=== PATIENT | female | born 1995 | race African-American/Black ===

== ENCOUNTER 2017-04-19 18:03 | Emergency (ER) | payer OTHER, SELFPAY ==
[2017-04-19 18:37] LABS: #Basophils 0.1 thou/uL (0.0-0.2); #Eosinphils 0.1 thou/uL (0.0-0.7); #Monocytes 0.4 thou/uL (0.11-0.59); #Neutrophils 2.1 thou/uL (1.40-6.50); %Basophils 1.3 % (0.0-1.0); %Eosinophils 2.6 % (0.0-10.0); %Lymphocytes 42.5 % (28.0-48.0); %Monocytes 9.2 % (0.0-4.0); %Neutrophils 44.5 % (31.0-61.0); Hemoglobin 11.9 g/dL (12.0-16.0); Mean Corpuscular HGB CONC 32.7 g/dL (32.0-36.0); Mean Corpuscular Hemoglobin 28.2 pg (25.0-35.0); Mean Corpuscular Volume 86.3 fl (77.0-87.0); Mean Platelet Volume 7.2 fL (7.4-10.4); Platelet Count 383 thou/uL (130-400); RBC Distribution Width 11.8 % (11.5-14.5); Red Blood Cell (RBC) Count 4.23 mill/uL (4.00-5.20); White Blood Cell (WBC) Count 4.8 thou/uL (4.8-10.8)
[2017-04-19 18:57] LABS: ALT (SGPT) 9 U/L (8-55); AST (SGOT) 11 U/L (5-34); Albumin 3.8 g/dL (3.5-5.0); Alkaline Phosphatase 64 U/L (40-150); Anion Gap 10 mmol/L (10-20); BUN (Urea Nitrogen) 7 mg/dL (7.0-18.7); Bilirubin, Total 0.4 mg/dL (0.2-1.2); Calc. Creatinine Clearance 0 mL/min (70-130); Calcium 8.7 mg/dL (7.8-10.44); Carbon Dioxide 24 mmol/L (22-29); Chloride 110 mmol/L (98-107); Estimated GFR-MDRD Greater than 90; Glucose 106 mg/dL (70-105); Potassium 3.8 mmol/L (3.5-5.1); Protein, Total 6.8 g/dL (6.0-8.3); Sodium 140 mmol/L (136-145)
[2017-04-19 18:58] LABS: Bilirubin Negative (Negative); Blood, Urine Negative (Negative); Clarity CLEAR (Clear); Glucose, Urine (Dipstick) Negative (Negative); Leukocyte Trace (Negative); Nitrite Negative (Negative); Protein, Urine (Dipstick) 30 mg/dL (Neg-Trace); Specific Gravity, Urine 1.026 (1.002-1.036); Urobilinogen 0.2 mg/dL (0.2-1.0); pH, Urine 8.5 (5.0-9.0)
[2017-04-19 19:06] LABS: Bacteria/HPF Rare-Few HPF (None Seen); Hyaline Casts/LPF 0-3 HYALINE CAST LPF (0-3 Hyaline); Pathc Cast-AUWi Flag 0.27 (0-2.49); WBC/HPF 0-3 HPF (0-3)
== END 2017-04-19 19:55 | disposition left against medical advice (07) ==
LOC: ERS 18:03
DX: Z53.21 Procedure and treatment not carried out due to patient leaving prior to being seen by health care provider (principal)
CPT/HCPCS: 36415; 80053; 81003; 81015; 85025

== ENCOUNTER 2017-09-27 14:32 | Emergency (ER) | payer OTHER, SELFPAY ==
[2017-09-27] MEDS ORDERED: Acetaminophen 500 MG TAB ONE (15:05)
== END 2017-09-27 15:09 | disposition home or self-care (01) ==
LOC: ERS 14:32
DX: K08.89 Other specified disorders of teeth and supporting structures (principal)
CPT/HCPCS: 99282

== ENCOUNTER 2018-01-16 13:30 | Outpatient (CLI) | payer OTHER ==
--- NOTE | 2018-01-16 15:51 | ULT ---
OB ULTRASOUND: Date: 01/16/18 HISTORY: Size and dates. FINDINGS: A single, live intrauterine gestation is seen with measurements corresponding to an estimated gestati onal age of 20 weeks/4 days and ZEKE at 06/01/18. The estimated weight measures 352 gm, or 12 oz . measurements are as follows: BPD: 4.84 cm, 20 weeks/5 days HC: 17.41 cm, 20 weeks/0 days AC: 14.67 cm, 20 weeks/0 days FL: 3.49 cm, 20 weeks/1 day heart rate measures 144 beats/minute. Placenta is anterior located without evidence of placenta previa. Amniotic fluid appears normal. Three vessel cord, cord insertion, kidneys, bladder, stomach, four chamber heart, lateral ventr icles, cerebellum, lips/nose, and upper/lower extremities are visualized. No definite anomalies are seen. IMPRESSION: Single, live intrauterine of 20 weeks/4 days estimated gestational age and ZEKE at 06/01/18. POS: RICHA
== END 2018-01-16 13:31 | disposition home or self-care (01) ==
LOC: BICULT 13:30
PROVIDERS: ATTEND Family Medicine
DX: O09.892 Supervision of other high risk pregnancies, second trimester (principal); Z3A.20 20 weeks gestation of pregnancy
CPT/HCPCS: 76805

== ENCOUNTER 2018-05-27 05:30 | Inpatient (IN) | payer OTHER ==
[2018-05-27] MEDS ORDERED: HYDROcodone/Acetaminophen 5/325 mg Tablet PO PRN ×3 (06:17→14:44)
[2018-05-27] MEDS ORDERED: NS / Oxytocin 40 units/1000ml 1,000 ML IV PRN (06:17)
[2018-05-27] MEDS ORDERED: Butorphanol Tartrate 1 MG/ML VIAL SLOW IVP PRN (06:17)
[2018-05-27] MEDS ORDERED: Diphenoxylate HCl/Atropine Tablet PO PRN (06:17)
[2018-05-27] MEDS ORDERED: Ibuprofen 800 MG TAB PO PRN (06:17)
[2018-05-27] MEDS ORDERED: Lidocaine 1% (PF) 30 ML VIAL SC PRN (06:17)
[2018-05-27] MEDS ORDERED: Ondansetron PF 4 MG/2 ML Vial IVP PRN ×4 (06:17→14:44)
[2018-05-27] MEDS ORDERED: Carboprost 250 MCG/ML AMP IM PRN (06:17)
[2018-05-27] MEDS ORDERED: NS w/ Oxytocin 10 units 500 ML IV SCH ×2 (06:17)
[2018-05-27] MEDS ORDERED: Methylergonovine 0.2 MG/ML VIAL IM PRN (06:17)
[2018-05-27] MEDS ORDERED: Misoprostol 200 MCG TAB PR PRN (06:17)
[2018-05-27 06:33] VITALS: BMI 28.3
[2018-05-27 06:35] LABS: Hemoglobin 8.5 g/dL (12.0-16.0); Mean Corpuscular HGB CONC 31.2 g/dL (32.0-36.0); Mean Corpuscular Volume 76.8 fL (78.0-98.0); Mean Platelet Volume 8.7 fL (7.4-10.4); Platelet Count 256 thou/uL (130-400); RBC Distribution Width 13.2 % (11.5-14.5); Red Blood Cell (RBC) Count 3.53 mill/uL (4.20-5.40); White Blood Cell (WBC) Count 10.1 thou/uL (4.8-10.8)
[2018-05-27] MEDS ORDERED: Fentanyl 4 mcg/Bup 0.1% Cadd 100 ML ONE (06:45)
[2018-05-27 07:11] LABS: HBSAg Index 0.27 S/CO (0-0.99); Hep B Surf Ag Non-Reactive S/CO (NonReactive); Syphilis Antibody Nonreactive (Nonreactive); Syphilis Antibody Index 0.06 S/CO (<1.00 Non-Reactive)
[2018-05-27] MEDS ORDERED: Lidocaine 1.5%/Epinephrine 1:200,000 5 ML AMPUL IJ ONE (07:17)
[2018-05-27] MEDS ORDERED: Lactated Ringer's 500 ML IV PRN ×2 (07:32→09:02)
[2018-05-27] MEDS ORDERED: Promethazine HCl 25 MG/ML VIAL IM PRN ×2 (07:32→09:02)
[2018-05-27] MEDS ORDERED: Eucerin (Mineral Oil/Petrolatum,White) 30 gm Jar TOP PRN ×2 (07:32→09:02)
[2018-05-27] MEDS ORDERED: Acetaminophen 325 MG TAB PO PRN ×2 (07:32→09:02)
[2018-05-27] MEDS ORDERED: ePHEDrine/0.9% NaCl/PF SYRINGE 50 mg/10 ml SLOW IVP PRN ×2 (07:32→09:02)
[2018-05-27] MEDS ORDERED: diphenhydrAMINE 50 MG/ML VIAL IVP PRN ×2 (07:32→09:02)
[2018-05-27] MEDS ORDERED: Naloxone HCl 0.4 mg/ml Vial IVP PRN ×4 (07:32→09:02)
[2018-05-27] MEDS: Lactated Ringer's 1,000 ML IV SCH ×3 (07:33→14:34)
[2018-05-27] MEDS ORDERED: Fentanyl 4 mcg/Bupivacaine 0.1% Cassette 100 ML EPIDURAL SCH (07:45)
[2018-05-27] MEDS ORDERED: Communication Order-Pharmacy FS SCH ×2 (07:45→09:15)
[2018-05-27] MEDS: Misoprostol 100 MCG TAB PO SCH ×3 (09:36→15:43)
[2018-05-27] MEDS ORDERED: Oxytocin 10 UNITS/ML VIAL ONE (12:15)
[2018-05-27] MEDS ORDERED: Misoprostol 200 MCG TAB ONE (12:29)
[2018-05-27] MEDS ORDERED: Azithromycin 500 MG VIAL ONE (12:45)
[2018-05-27] MEDS ORDERED: CEFAZOLIN 1 GM VIAL SLOW IVP SCH (13:00)
[2018-05-27] MEDS ORDERED: Azithromycin 500 MG in Sodium Chloride 0.9% 250 ML 250 ML IVPB SCH (13:15)
[2018-05-27] MEDS ORDERED: CEFAZOLIN 1 GM VIAL ONE (13:49)
[2018-05-27] MEDS: metroNIDAZOLE 500 MG in Premix Bag 1 BAG IVPB SCH ×2 (14:34→22:47)
[2018-05-27] MEDS ORDERED: Milk Of Magnesia 30 ML UDCUP PO PRN (14:44)
[2018-05-27] MEDS ORDERED: Bisacodyl 10 MG SUPP PR PRN (14:44)
[2018-05-27] MEDS ORDERED: Benzocaine/Menthol 20-0.5% 60 ML CAN TOP PRN (14:44)
[2018-05-27] MEDS ORDERED: diphenhydrAMINE 25 MG CAP PO PRN (14:44)
[2018-05-27] MEDS ORDERED: NS / Oxytocin 40 units/1000ml 1,000 ML IV SCH (14:44)
[2018-05-27] MEDS ORDERED: Lanolin Ointment 7 GM TUBE TOP PRN (14:44)
[2018-05-27] MEDS: Ibuprofen 800 MG TAB PO SCH ×2 (16:07→22:03)
[2018-05-27] MEDS: Docusate Calcium (SURFAK) 240 MG CAP PO SCH (22:03)
--- NOTE | 2018-05-28 00:16 | PDOC.PP ---
Post Progress Note Post Day #: PPD#1 Subjective: No c/o. PO intake tolerated: yes Flatus: yes Ambulation: yes Vital Signs (12 hours) Temp Pulse Resp BP Pulse Ox 05/27/18 19:30 97.9 F 81 16 112/58 L 99 05/27/18 16:18 99.3 F 104 H 18 113/66 97 05/27/18 15:05 99.3 F 99 18 121/71 98 Weight Weight 87.09 kg - Physical Examination General: NAD Respiratory: non-labored breathing Abdominal: no distention Psychiatric: normal affect Result Diagrams: 05/27/18 06:23 Additional Labs: Post Labs Blood Type O POSITIVE 05/27/18 07:37 Hep Bs Antigen Non-Reactive S/CO (NonReactive) 05/27/18 06:23 - Assessment/Plan Doing well s/p with retained placenta, manual removal. Ancef/Flagyl x [address] Sandoval. Routine PP care.
[2018-05-28] MEDS: Ibuprofen 800 MG TAB PO SCH ×3 (06:31→21:15)
[2018-05-28] MEDS: metroNIDAZOLE 500 MG in Premix Bag 1 BAG IVPB SCH (06:32)
[2018-05-28 07:00] LABS: Hemoglobin 7.8 g/dL (12.0-16.0); Mean Corpuscular HGB CONC 31.3 g/dL (32.0-36.0); Mean Corpuscular Hemoglobin 24.6 pg (27.0-31.0); Mean Corpuscular Volume 78.7 fL (78.0-98.0); Mean Platelet Volume 8.6 fL (7.4-10.4); Platelet Count 209 thou/uL (130-400); RBC Distribution Width 13.2 % (11.5-14.5); Red Blood Cell (RBC) Count 3.16 mill/uL (4.20-5.40); White Blood Cell (WBC) Count 16.3 thou/uL (4.8-10.8)
[2018-05-28] MEDS: Prenatal Vitamin 1 TAB PO SCH (09:43)
[2018-05-28] MEDS: Docusate Calcium (SURFAK) 240 MG CAP PO SCH ×2 (09:43→21:14)
--- NOTE | 2018-05-29 01:56 | PDOC.PP ---
Post Progress Note Post Day #: 2 Subjective: Doing well PO intake tolerated: yes Flatus: yes Ambulation: yes Vital Signs (12 hours) Temp Pulse Resp BP 05/28/18 19:21 98.1 F 74 18 103/58 L Weight Weight 192 lb Past vitals all reviewed for last 24 HRS - Physical Examination General: NAD Cardiovascular: no m/r/g Respiratory: clear to auscultation bilaterally Abdominal: + bowel sounds, lochia, no distention, appropriately TTP Extremities: negative homans (B) Neurological: no gross focal deficits Psychiatric: A&Ox3, normal affect Result Diagrams: 05/28/18 06:38 Additional Labs: Post Labs Blood Type O POSITIVE 05/27/18 07:37 Hep Bs Antigen Non-Reactive S/CO (NonReactive) 05/27/18 06:23 (1) Vaginal delivery Code(s): O80 - ENCOUNTER FOR FULL-TERM UNCOMPLICATED DELIVERY Status: Acute (2) Retained placenta Code(s): O73.0 - RETAINED PLACENTA WITHOUT HEMORRHAGE Status: Acute - Assessment/Plan PPD2 doing well. She had receivedancef and flagyl PP for initial temp elevation , but no temp in > 24 hours. OK for home today, 05/29/18 at noon. Home with motrin. HCT 27 to 25. Final DX: vaginal delivery Retained placenta Metritis, resolved
[2018-05-29] MEDS: Ibuprofen 800 MG TAB PO SCH ×2 (05:48→14:13)
[2018-05-29 07:51] VITALS: BP 117/67; TEMP 97.9
[2018-05-29] MEDS: Docusate Calcium (SURFAK) 240 MG CAP PO SCH (08:38)
[2018-05-29] MEDS: Prenatal Vitamin 1 TAB PO SCH (08:38)
== END 2018-05-29 15:25 | disposition home or self-care (01) | DRG 805 ==
LOC: L&D 06:00 → 3SW 15:16
PROVIDERS: ADMIT Family Medicine; ATTEND Family Medicine
PROC: 0KQM0ZZ Repair Perineum Muscle, Open Approach (ICD-10-PCS; principal; 2018-05-27)
PROC: 10E0XZZ Delivery of Products of Conception, External Approach (ICD-10-PCS; 2018-05-27)
PROC: 10907ZC Drainage of Amniotic Fluid, Therapeutic from Products of Conception, Via Natural or Artificial Opening (ICD-10-PCS; 2018-05-27)
PROC: 3E0P7VZ Introduction of Hormone into Female Reproductive, Via Natural or Artificial Opening (ICD-10-PCS; 2018-05-27)
DX: O76 Abnormality in fetal heart rate and rhythm complicating labor and delivery (principal); O41.1230 Chorioamnionitis, third trimester, not applicable or unspecified; Z37.0 Single live birth; O73.0 Retained placenta without hemorrhage; O70.1 Second degree perineal laceration during delivery; Z3A.39 39 weeks gestation of pregnancy; O69.81X0 Labor and delivery complicated by cord around neck, without compression, not applicable or unspecified
CPT/HCPCS: 36415; 51702; 85027; 86780; 86850; 86900; 86901; 87340; 88307; J0456; J0690; J2001; J2210; J2590; J3490

== ENCOUNTER 2018-09-11 16:49 | Emergency (ER) | payer OTHER | END 2018-09-11 18:14 | disposition short-term general hospital (02) | LOC: SCSER 16:49 | DX: T74.21XA Adult sexual abuse, confirmed, initial encounter (principal) | CPT/HCPCS: 99285 ==

== ENCOUNTER 2023-05-25 05:52 | Emergency (ER) | payer OTHER | END 2023-05-25 07:50 | disposition home or self-care (01) | LOC: ERS 05:52 | DX: O99.612 Diseases of the digestive system complicating pregnancy, second trimester (principal); K08.89 Other specified disorders of teeth and supporting structures; O99.332 Smoking (tobacco) complicating pregnancy, second trimester; F17.210 Nicotine dependence, cigarettes, uncomplicated; Z3A.24 24 weeks gestation of pregnancy | CPT/HCPCS: 99283 ==

== ENCOUNTER 2023-09-13 17:13 | Emergency (ER) | payer OTHER | END 2023-09-13 18:36 | disposition short-term general hospital (02) | LOC: ERS 17:13 | DX: O99.891 Other specified diseases and conditions complicating pregnancy (principal); R10.30 Lower abdominal pain, unspecified; O99.333 Smoking (tobacco) complicating pregnancy, third trimester; F17.210 Nicotine dependence, cigarettes, uncomplicated; Z3A.38 38 weeks gestation of pregnancy; Z55.6 Problems related to health literacy | CPT/HCPCS: 99283 ==